=== PATIENT | female | born 2000 | race Caucasian/White ===

== ENCOUNTER → 2019-01-11 | Outpatient (CLI) | payer BC ==
--- NOTE | 2019-01-11 18:28 | US ---
EXAMINATION TYPE: US renals and bladder DATE OF EXAM: 01/11/2019 COMPARISON: NONE CLINICAL HISTORY: R10.9 right flank pain. Right flank pain x 6 days. EXAM MEASUREMENTS: Right Kidney: 10.9 x 4.6 x 4.0 cm Left Kidney: 10.6 x 4.5 x 5.2 cm Right Kidney: No hydronephrosis or masses seen Left Kidney: No hydronephrosis or masses seen Bladder: appears anechoic Bilateral Jets seen: Yes IMPRESSION: Normal exam. No renal mass or obstruction.
== END | disposition home or self-care (01) ==
LOC: RADUSMAIN 17:44
PROVIDERS: ATTEND Physician Assistant
DX: R10.9 Unspecified abdominal pain (principal)
CPT/HCPCS: 76770